=== PATIENT | male | born 1945 | race Caucasian/White ===

== ENCOUNTER 2022-01-21 14:19 | Emergency (ER) | payer OTHER, SELFPAY ==
[2022-01-21 19:19] VITALS: BP 0/0; PULSE 0; RESP 0; TEMP -17.7; TEMP 0; O2SAT 0
== END 2022-01-21 19:20 | disposition left against medical advice (07) ==
LOC: ER 15:52
PROVIDERS: Emergency Provider Emergency Medicine
DX: Z53.21 Procedure and treatment not carried out due to patient leaving prior to being seen by health care provider (principal)